=== PATIENT | male | born 1985 | race Caucasian/White ===

== ENCOUNTER 2021-02-18 10:26 | Emergency (ER) | payer OTHER, SELFPAY ==
--- NOTE | ~2021-02-18 | XR_ITS ---
EXAMINATION: XR foot LT min 3V DATE: 02/18/2021 11:21 INDICATION: Left foot pain TECHNIQUE: Dorsoplantar, lateral, and 2 oblique views of the left foot were obtained. COMPARISON: None. FINDINGS: There is no fracture, dislocation, or subluxation. The bones, soft tissues, and joint space s are normal. IMPRESSION: 1. No acute osseous abnormality. Reviewed, dictated and finalized at location B. [employer]K DESIGN ARCHITECT
--- NOTE | ~2021-02-18 | XR_ITS ---
EXAMINATION: XR ankle LT min 3V DATE: 02/18/2021 11:20 INDICATION: Left ankle pain and swelling TECHNIQUE: Anteroposterior, lateral, mortise, and additional oblique view of the ankle were obtained. COMPARISON: None. FINDINGS: There is no fracture, dislocation, or subluxation. The bones, soft tissues, and joint space s are normal. IMPRESSION: 1. No acute osseous abnormality. Reviewed, dictated and finalized at location B. IC ADMINISTRATION TEACHER
[2021-02-18 11:06] VITALS: BP 140/93; PULSE 79; RESP 18; TEMP 36.6; O2SAT 100
--- NOTE | 2021-02-18 11:06 | ED.LOWEXIN ---
HPI - Extremity Injury (Lower) General Chief Complaint: Extremity Injury, Lower Stated Complaint: L ankle/foot injury Time Seen by Provider: 02/18/21 11:06 Source: patient, RN notes reviewed and old records reviewed Mode of arrival: ambulatory Limitations: no limitations History of Present Illness HPI Narrative: 36 year old male who presents to [facility] care with complaints of discomfort to his left lateral and medial foot and to lateral area of left ankle for the past 1.5 weeks. Patient denies any known injury to his foot or ankle and states that pain will gradual increase in intensity as day progresses and with amount of weight bearing. He states that he has been taking Ibuprofen and has used ice with no improvement. Patient states that he has played sports in past but has not had any known injury to area, he does free weights but has not had any stress to his foot or ankle. MD complaint: ankle injury (left lateral ankle) and foot injury (left foot) Related Data Home Medications Medication Instructions Recorded Confirmed No Home Medications 02/18/21 02/18/21 Allergies Allergy/AdvReac Type Severity Reaction Status Date / Time No Known Allergies Allergy Verified 02/18/21 11:52 Review of Systems Review of Systems: CONSTITUTIONAL: Denies fever, chills, or sweats. EYES: Denies visual changes, redness, or discharge. ENT: Denies rhinorrhea, congestion, sore throat, or otalgia. CARDIOVASCULAR: Denies chest pain, palpitations, or edema. RESPIRATORY: Denies cough or dyspnea. GASTROINTESTINAL: Denies abdominal pain, nausea, vomiting, or diarrhea. GENITOURINARY: Denies dysuria or hematuria. SKIN: Denies rash or itching. MUSCULOSKELETAL: Denies back pain, positive for left lateral ankle pain and also pain to lateral and medial foot. NEUROLOGIC: Denies headache, numbness, or weakness. PSYCHIATRIC: Denies anxiety or depression. All systems reviewed & are unremarkable except as noted in HPI and below PMFSH Past Medical History Medical History (Updated 02/19/21 @ 15:39 by Lorna Kraft NP) No pertinent past medical history Surgical History Surgical History (Updated 02/18/21 @ 11:47 by Lorna Kraft NP) History of tonsillectomy Family History Family History (Updated 02/18/21 @ 11:42 by Lorna Kraft NP) Father Malignant neoplasm of prostate Social History Social History (Updated 02/18/21 @ 11:47 by Lorna Kraft NP) Smoking status: Never smoker Alcohol intake: current Alcohol use details: social Substance use: never Living arrangements: with family Gender identity (if verbalized by the patient): Male Comments At time of signature, agree with nursing past medical, surgical, social and family history. There is no relevant family history pertinent to the presenting complaint Exam Narrative: GENERAL: Well-appearing, well-nourished, and in no acute distress. HEAD: Normocephalic, atraumatic. EYES: PERRLA and EOMI. ENT: Nares clear, no rhinorrhea or epistaxis. Mucous membranes moist. NECK: Supple.no lymphadenopathy CHEST: Clear to auscultation. No respiratory distress.SAO2 100% on room air. HEART: Regular rate and rhythm. No murmur heard. Normal peripheral pulses. ABDOMEN: Soft, nontender, nondistended, normal active bowel sounds. EXTREMITIES: Normal range of motion. No edema.Patient has strong pedal and posterior tibial pulses, tenderness to lateral and medial aspect of left foot and tenderness under left lateral calcaneus with no swelling noted, Patient has noted increase pain with weight bearing and with extension of foot when compared to flexion of left foot.Patient denies any tingling or numbness to his foot or toes. SKIN: Warm, dry, no rash. NEURO: No focal deficits. Alert and oriented x3. Course Vital Signs Vital signs: Vital Signs Temperature 36.6 C 02/18/21 11:06 Pulse Rate 79 02/18/21 11:06 Respiratory Rate 18 02/18/21 11:06 Blood Pressure 140/93 H 02/18/21
== END 2021-02-18 13:18 | disposition home or self-care (01) ==
PROVIDERS: Emergency Provider Registered Nurse; PCP Family Medicine
DX: M25.572 Pain in left ankle and joints of left foot (principal)
CPT/HCPCS: 73610; 73630; 99203; G0463